=== PATIENT | female | born 2000 | race Two or more races ===

== ENCOUNTER 2021-11-16 08:56 | Outpatient (CLI) | payer OTHER | END 2021-11-16 10:30 | disposition home or self-care (01) | LOC: PRENATAL 08:56 | PROVIDERS: ATTEND Obstetrics & Gynecology Maternal & Fetal Medicine | DX: O36.80X0 Pregnancy with inconclusive fetal viability, not applicable or unspecified (principal); Z36.0 Encounter for antenatal screening for chromosomal anomalies ==

== ENCOUNTER 2021-12-27 10:22 | Outpatient (CLI) | payer OTHER | END 2021-12-27 12:27 | disposition home or self-care (01) | LOC: PRENATAL 10:22 | PROVIDERS: ATTEND Obstetrics & Gynecology Maternal & Fetal Medicine | DX: O26.849 Uterine size-date discrepancy, unspecified trimester (principal); O36.5990 Maternal care for other known or suspected poor fetal growth, unspecified trimester, not applicable or unspecified; O34.219 Maternal care for unspecified type scar from previous cesarean delivery; Z3A.29 29 weeks gestation of pregnancy ==

== ENCOUNTER 2022-05-05 09:20 | Outpatient (CLI) | payer OTHER ==
[2022-05-05] MEDS ORDERED: PRENATAL TABLE1 EAC3 (09:53)
[2022-05-05] MEDS ORDERED: VALTREX1000 MG (09:54)
== END 2022-05-06 12:23 | disposition home or self-care (01) ==
LOC: OBS/DEL 09:20
PROVIDERS: ATTEND Obstetrics & Gynecology
DX: O47.1 False labor at or after 37 completed weeks of gestation (principal); Z3A.38 38 weeks gestation of pregnancy; Z20.828 Contact with and (suspected) exposure to other viral communicable diseases

== ENCOUNTER 2022-05-08 08:37 | Inpatient (IN) | payer OTHER ==
[~2022-05-08] VITALS: Ht 162.6 cm; Wt 87.5 kg
[~2022-05-08 08:37] MED LIST: PRENATAL TABLE1 EAC3; VALTREX1000 MG
== END 2022-05-14 11:38 | disposition home or self-care (01) | DRG 787 ==
LOC: LDR 08:37 → OB/GYN 08:37
PROVIDERS: ADMIT Obstetrics & Gynecology; ATTEND Obstetrics & Gynecology
PROC: 4A1HXCZ Monitoring of Products of Conception, Cardiac Rate, External Approach (ICD-10-PCS; 2022-05-08)
PROC: 10D00Z1 Extraction of Products of Conception, Low, Open Approach (ICD-10-PCS; principal; 2022-05-08 20:00)
DX: O82 Encounter for cesarean delivery without indication (principal); O86.4 Pyrexia of unknown origin following delivery; O76 Abnormality in fetal heart rate and rhythm complicating labor and delivery; Z3A.39 39 weeks gestation of pregnancy; Z37.0 Single live birth; Z20.822 Contact with and (suspected) exposure to COVID-19